=== PATIENT | male | born 1985 ===

== ENCOUNTER 2016-11-22 21:21 | Inpatient (IN) ==
--- NOTE | 2016-11-22 22:09 | Emergency Department Note ---
Disposition Clinical Impression: Acute thrombus of left ventricle, History of CHF (congestive heart failure) Disposition: Home, Self-Care Condition: Good Referrals: Unassigned,Provider [Primary Care Provider] - Forms: Work/School Release, ED Satisfaction Letter Time of Disposition: 22:46 General Adult HPI - General Chief complaint: ED General Medical Stated complaint: Blood Clot~Dr. Batres Time Seen by Provider: 11/22/16 21:47 Source: patient Mode of arrival: ambulatory Limitations: no limitations Nursing Notes Reviewed: Yes Vital Signs Reviewed: Yes - History of Present Illness HPI Narrative: Patient is a 31-year-old male with past medical history CHF, cardiomyopathy, hypertension. He presents today due to referral from Dr. Batres to come to the ED for admission for anticoagulation for an LV thrombus that was found on routine echo. Patient denies any chest pain, any shortness of breath is worsened from his baseline, any nausea, vomiting, fevers, diarrhea, abdominal pain. Patient was told on the phone by Dr. Batres that he could do Coumadin or Lovenox injections. Patient stated that he did not want to have to do injections, therefore he opted for heparin and Coumadin therapy. He takes Lasix 40 mg daily for CHF Pain Scale: 0 - Related Data Home Medications Medication Instructions Recorded Confirmed Trazodone HCl [TraZODone] 100 mg PO HS 09/04/15 11/22/16 OxyCODONE/APAP 5/325 [Percocet 1 each PO Q6H PRN 12/06/15 11/22/16 5/325 MG] Diclofenac Sodium [Diclofenac 1 appl TP QID PRN 11/22/16 11/22/16 Sodium] Duloxetine HCl [Cymbalta] 60 mg PO DAILY 11/22/16 11/22/16 Metoprolol XL (24 HR) Succ [Toprol 75 mg PO DAILY 11/22/16 11/22/16 Xl] Pregabalin [Lyrica] 50 mg PO TID 11/22/16 11/22/16 Previous Rx's Medication Instructions Recorded Aspirin 81 mg PO DAILY #30 tab.chew 12/08/15 Furosemide [Lasix] 40 mg PO DAILY #30 tablet 12/08/15 Lisinopril [Zestril] 40 mg PO DAILY #60 tablet 12/08/15 Potassium Chloride 10 meq PO DAILY #30 tab.er.prt 12/08/15 Allergies Allergy/AdvReac Type Severity Reaction Status Date / Time No Known Allergies Allergy Verified 12/06/15 12:27 Constitutional: Denies: fever Cardiovascular: Denies: chest pain, palpitations, dyspnea on exertion Respiratory: Reports: dyspnea (baseline). Denies: cough, wheezes Gastrointestinal: Denies: abdominal pain, nausea, vomiting, diarrhea Genitourinary: Denies: urgency, dysuria, frequency Musculoskeletal: Denies: back pain Integumentary: Denies: rash Neurological: Denies: headache, weakness, numbness, paresthesias Past Medical History - Past Medical History Attestation: Yes The following information was validated with the patient. Source: patient Medical history: Reports: cardiomyopathy, CHF, hypertension, other Surgical history: Reports: no surgical history Psychiatric history: Reports: anxiety - Social History Smoking Status: Current every day smoker Smokeless Tobacco Status: No Alcohol use: Reports: heavy, recent Drug use: Reports: none Physical Exam - General Limitations: no limitations General appearance: alert, in no apparent distress - Head Head exam: atraumatic, normocephalic, normal inspection - Eye Eye exam: Present: normal appearance, PERRL, EOMI - ENT ENT exam: normal exam, mucous membranes moist - Neck Neck exam: Present: normal inspection, full ROM, trachea midline - Chest Chest inspection: Present: normal inspection, symmetric chest wall rise - Respiratory Respiratory exam: Present: normal lung sounds bilaterally - Cardiovascular Cardiovascular exam: Present: regular rate, normal rhythm, normal heart sounds - Abdominal Exam Abdominal exam: Present: soft, Non-Tender. Absent: tenderness, distention, guarding, rebound, rigidity - Extremities Exam Extremities exam: Present: normal inspection, full ROM. Absent: tenderness, pedal edema - Neurological Exam Neurological exam: Present: alert, oriented X3 - Psychiatric Psychiatric exam: Present: normal affect, normal mood - Skin Skin exam: Present: warm, dry, intact, normal color Course Course Narrative: Vitals within normal limits. Physical exam benign. Discussed the diagnosis with the patient, he would like to be started on heparin and Coumadin therapy instead of Lovenox injections. Dr. Lama was contacted, head of store operations for [employer], he will be consult to the case and will see patient in the morning. Heparin started here in the department. Vital Signs Temperature 98.3 F 11/22/16 21:42 Pulse Rate 93 11/22/16 21:42 Respiratory Rate 16 11/22/16 21:42 Blood Pressure 129/84 11/22/16 21:42 O2 Sat by Pulse Oximetry 99 11/22/16 21:42 Temperature 98.3 F 11/22/16 21:42 Pulse Rate 93 11/22/16 21:42 Respiratory Rate 16 11/22/16 21:42 Blood Pressure 129/84 11/22/16 21:42 O2 Sat by Pulse Oximetry 99 11/22/16 21:42 Oxygen Delivery Oxygen Delivery Room Air Medical Decision Making - MDM Narrative Medical decision making narrative: Vitals within normal limits. Physical exam benign. Discussed the diagnosis with the patient, he would like to be started on heparin and Coumadin therapy instead of Lovenox injections. Dr. Lama was contacted, head of store operations for [employer], he will be consult to the case and will see patient in the morning. Heparin started here in the department. - Medical Records Medical records reviewed: Yes I reviewed the patient's medical records. - Lab Data Lab results reviewed: Yes I reviewed the patient's lab results. Result diagrams: 11/22/16 22:13 11/22/16 22:13 Lab Results 11/22/16 11/22/16 11/22/16 Range/Units 22:13 22:13 22:13 WBC 9.8 (4.3-11.1) K/mcL RBC 4.87 (4.19-5.50) M/mcL Hgb 15.5 (12.9-16.9) g/dL Hct 43.5 (37.5-50.1) % MCV 89.3 (83.0-100.0) fL MCH 31.8 (28.0-33.3) pg MCHC 35.6 H (31.6-35.5) g/dL RDW 12.0 (11.5-14.5) % Plt Count 240 (140-400) K/mcL MPV 9.4 (9.4-12.4) fL Immature Gran % 0.2 (0-4) % Seg Neutrophils % 57.2 % Lymphocytes % 31.8 % Monocytes % 9.3 % Eosinophils % 1.1 % Basophils % 0.4 % Neutrophils # 5.6 (1.6-8.9) K/mcL Lymphocytes # 3.1 (0.6-4.6) K/mcL Monocytes # 0.9 (0.0-1.3) K/mcL Eosinophils # 0.1 (0.0-0.6) K/mcL Basophils # 0.0 (0.0-0.2) K/mcL PT 11.0 (9.4-12.1) Seconds INR 1.0 APTT 31.1 (26.0-36.0) Seconds Sodium 137 (136-145) mEq/L Potassium 3.7 (3.5-4.5) mEq/L Chloride 102 (98-109) mEq/L Carbon Dioxide 23 (19-29) mEq/L BUN 10 (8-26) mg/dL Creatinine 0.91 (0.72-1.25) mg/dL Est GFR ( Amer) > 60 (> 60) Est GFR (Non-Af Amer) > 60 (> 60) BUN/Creatinine Ratio 11 (6-26) Glucose 107 H (70-99) mg/dL Calculated Osmolality 284 (280-300) Calcium 10.3 (8.6-10.8) mg/dL - EKG Data EKG #1 EKG attestation: Yes I reviewed and interpreted this EKG. EKG results narrative: 11/22/2016 at 22:23. Normal sinus rhythm. Rate 87. FL 159. QRS 102. QTc 410. Left axis. Q wave in lead V1 with inverted T-wave. This is present on old EKG from 12/2015. No other acute ST elevation or depression. Cassie - Cassie Situation: Demographics, MOA Background: Presenting Complaint, Relevant PMH, Meds, & Allergies Assessment: Vital Signs, Course and respsone to treatment, Exam Concerns, Patient/Family Expectation, Pertinant Lab Results, Outstanding Labs Recommendation: Barrier(s) to disposition, Recommendation based on pending studies, treatments, or consults SRohan Report Given to: Dr. Daksha Matthews Repor Time: 22:46 Attestation Statement - Attestation Attestation: I examined this patient and my medical decision-making was reviewed with the ASS[employer]ULT [employer] CREWMAN/PA/Advanced Practice Nurse/Resident Physician. I agree with the documented findings, disposition and treatment plan as described except to the extent set forth below. Patient to ED with thrombus in his left ventricle. Diagnoses an outpatient and sent for heparin and admission. Patient denies any physical complaints. On examination he is sitting up in bed pleasant and conversant. Lungs clear. Plan. Heparin and admit. 30 minutes critical care exclusive of separately billable procedures.
[2016-11-22 22:26] LABS: Basophils % 0.4 %; Eosinophils # 0.1 K/mcL (0.0-0.6); Eosinophils % 1.1 %; Hematocrit 43.5 % (37.5-50.1); Hemoglobin 15.5 g/dL (12.9-16.9); Immature Granulocytes % 0.2 % (0-4); Lymphocytes # 3.1 K/mcL (0.6-4.6); Lymphocytes % 31.8 %; Mean Corpuscular HGB Conc 35.6 g/dL (31.6-35.5); Mean Corpuscular Hemoglobin 31.8 pg (28.0-33.3); Mean Corpuscular Volume 89.3 fL (83.0-100.0); Mean Platelet Volume 9.4 fL (9.4-12.4); Monocytes # 0.9 K/mcL (0.0-1.3); Monocytes % 9.3 %; Neutrophils # 5.6 K/mcL (1.6-8.9); Platelet Count 240 K/mcL (140-400); Red Blood Count 4.87 M/mcL (4.19-5.50); Segmented Neutrophils % 57.2 %
[2016-11-22 22:39] LABS: BUN/Creatinine Ratio 11 (6-26); Blood Urea Nitrogen 10 mg/dL (8-26); Calcium 10.3 mg/dL (8.6-10.8); Carbon Dioxide 23 mEq/L (19-29); Chloride 102 mEq/L (98-109); Glucose 107 mg/dL (70-99); Osmolality,Calculated 284 (280-300); Potassium 3.7 mEq/L (3.5-4.5); Sodium 137 mEq/L (136-145); eGFR For African Americans > 60 (> 60); eGFR For Non-African Americans > 60 (> 60)
[2016-11-22 22:41] LABS: Activated Partial Thrombo Time 31.1 Seconds (26.0-36.0)
[2016-11-22] MEDS ORDERED: *HR* Heparin 5,000 UNIT/ML VIAL IVP PRN ×2 (22:43)
[2016-11-22] MEDS ORDERED: *HR* Heparin 5,000 UNIT/ML VIAL IVP ONE (22:43)
[2016-11-22] MEDS ORDERED: *HR* LORazepam 2 MG/ML VIAL IV ONE (23:12)
[2016-11-22] MEDS ORDERED: Nicotine 21 MG PATCH.TD24 TD STA (23:13)
[2016-11-22] MEDS: Heparin 25,000 UNIT/500 ML D5W 25,000 UNIT/500 ML MLS IVC SCH (23:45)
[2016-11-23] MEDS ORDERED: *HR* Warfarin 10 MG TABLET PO ONE (01:04)
[2016-11-23] MEDS ORDERED: *HR* LORazepam 0.5 MG TABLET PO ONE (01:05)
[2016-11-23] MEDS ORDERED: Acetaminophen 325 MG TABLET PO PRN (01:06)
[2016-11-23] MEDS ORDERED: Naloxone 0.4 MG/ML INJ IVP PRN (01:06)
--- NOTE | 2016-11-23 01:10 | Internal Med History&Physical ---
Date of Encounter: 11/23/16 Time of Encounter: 01:10 Assessment and Plan (1) Acute thrombus of left ventricle Current visit: Yes Status: Acute Patient is started on heparin infusion and warfarin.Warfarin dosing per pharmacy , for a target of 2-3. Will consult mercury cracking tester. (2) History of CHF (congestive heart failure) Current visit: Yes Status: Chronic Known history of systolic CHF. Recent echocardiogram showed LVEF of 25%. Continue his home medications. Low-sodium diet and fluid restriction to 1.5-2 L per day (3) Cardiomyopathy Current visit: Yes Status: Chronic Non ischemic cardiomyopathy. continue his home medications Qualifiers: Cardiomyopathy type: unspecified Qualified Code(s): I42.9 - Cardiomyopathy , unspecified (4) Essential hypertension Current visit: Yes Status: Chronic Blood pressure is controlled. Continue home medications. Internal Medicine - H&P: HPI Chief complaint: LV thrombus Admitted From: Emergency Dept Plans for Post Hospital Care: Home History of present illness: Mr. Cabrera is a 31 year old male with past medical history systolic CHF (LVEF of 35%), non-ischemic cardiomyopathy, hypertension, h/o ETOH and tobacco abuse. Pt was in Dr. Harper office for echocardiogram, which reported LVEF of 35% and echodensity in the left ventricular apex suspicious for laminated LV thrombus. Patient was advised to come to the emergency department for anticoagulation. Rug Cleaner advised / pt preference, heparin infusion and warfarin. Patient denies any chest pain, any worsening of shortness of breath, palpitations, cough, expectoration, fever, chills, abdominal pain, nausea, vomiting, fevers, diarrhea, dysuria. Patient with started on heparin infusion in the emergency department. He is admitted to the hospitalist service for further management. Past Med Surg Social Fam HX - Past Medical History Medical history: cardiomyopathy, CHF, hypertension, other Psychiatric history: anxiety - Past Surgical History Surgical History: no surgical history - Social History Smoking Status: Current every day smoker Smokeless Tobacco Status: No Alcohol use: heavy, recent Drug use: none - Family History Mother Adopted: No Family Member Ethnicity: Non- Living Status: Still Living Hx Family Cardiac Disorders: No Hx Family Respiratory Disorders: No Hx Family Cancer: No Hx Family GI Disorders: No Hx Family Endocrine Disorder: No Hx Family Neuromuscular Disorders: No Hx Family Neurologic Disorders: No Hx Family HEENT Disorders: No Hx Family Autoimmune Disorders: No Internal Medicine - H&P: Meds Trazodone HCl [TraZODone] 100 mg PO HS 09/04/15 [History] OxyCODONE/APAP 5/325 [Percocet 5/325 MG] 1 each PO Q6H PRN 12/06/15 [History] Aspirin 81 mg PO DAILY #30 tab.chew 12/08/15 [Rx] Furosemide [Lasix] 40 mg PO DAILY #30 tablet 12/08/15 [Rx] Lisinopril [Zestril] 40 mg PO DAILY #60 tablet 12/08/15 [Rx] Potassium Chloride 10 meq PO DAILY #30 tab.er.prt 12/08/15 [Rx] Diclofenac Sodium [Diclofenac Sodium] 1 appl TP QID PRN 11/22/16 [History] Duloxetine HCl [Cymbalta] 60 mg PO DAILY 11/22/16 [History] Metoprolol XL (24 HR) Succ [Toprol Xl] 75 mg PO DAILY 11/22/16 [History] Pregabalin [Lyrica] 50 mg PO TID 11/22/16 [History] Allergies No Known Allergies Allergy (Verified 12/06/15 12:27) All Systems PM: A 10-system review of systems was performed and is negative for pertinent findings except as documented above in the HPI. - Constitutional Vitals: Temp Pulse Resp BP Pulse Ox 98.3 F 93 18 116/90 99 11/22/16 21:42 11/22/16 21:42 11/23/16 00:11 11/23/16 00:11 11/22/16 21:42 Exam: General: Not in acute distress at the time of my evaluation HEENT: Oral mucosa is moist. No conjunctival palor or scleral icterus Neck: No obvious neck swellings Lungs: Clear to auscultation Cardiac: Regular rate and rhythm. No significant murmurs Abdomen: Soft, non tender. Bowel sounds present Genitourinary: No figueroa catheter Neurological: Alert and oriented. No gross localizing deficits Psych: Not aggressive or agitated Extremities: no significant leg edema Skin: No generalized rash Internal Med - H&P Results - Labs CBC & Chem 7: 11/22/16 22:13 11/22/16 22:13 - EKG Data -: EKG Interpreted by Myself EKG shows normal: sinus rhythm - EKG Data EKG comments: Q waves in V2 V3 11/23/16 04:34 - VTE Reasons for not Prescribing Prophylaxis: Not indicated-Anticoagulated or INR therapeutic
[2016-11-23] MEDS: *HR* OxyCODONE/APAP 5/325 TABLET PO PRN ×3 (05:40→21:00)
[2016-11-23 06:28] LABS: INR 1.1; Prothrombin Time 11.4 Seconds (9.4-12.1)
[2016-11-23] MEDS: Pregabalin 50 MG CAPSULE PO SCH ×3 (08:45→22:57)
[2016-11-23] MEDS: Furosemide 40 MG TABLET PO SCH (08:46)
[2016-11-23] MEDS: Metoprolol XL (24 HR) Succ 50 MG TAB.ER.24H PO SCH (08:46)
[2016-11-23] MEDS: Aspirin 81 MG TAB.CHEW PO SCH (08:46)
[2016-11-23] MEDS ORDERED: Lisinopril 20 MG TABLET PO SCH (09:00)
[2016-11-23] MEDS: *HR* LORazepam 0.5 MG TABLET PO PRN ×2 (09:48→20:59)
[2016-11-23] MEDS: Nicotine 21 MG PATCH.TD24 TD SCH (09:49)
--- NOTE | 2016-11-23 09:51 | Cardiology Consult Note ---
<Tyron Cardoso - Last Filed: 11/23/16 09:42> Date of Encounter: 11/23/16 Time of Encounter: 09:42 Assessment and Plan (1) LV (left ventricular) mural thrombus Current Visit: Yes Status: Acute On heparin bridge to coumadin therapy. Goal INR 2.0-3.0. Pt voiced understanding. Will refer to coumadin clinic. Pharmacy dosing currently. Pt is anxious about staying and says he may have to leave prior to therapuetic INR. Will considr lovenox therapy. I will order nicotine patch. Discussed with primary team. CIWA protocal started. ETOH cessation discussed. (2) Cardiomyopathy Current Visit: Yes Status: Chronic Known non ischemic cardiomyopathy. TTE yesterday showed EF 35%. Currently euvolemic. ETOH cessation discussed. Continue metoprolol succinate, lisinopril, and Lasix. Low-sodium diet and daily weights. Strict I&O. Need for ICD placement can be discussed further an outpatient setting. Qualifiers: Cardiomyopathy type: unspecified Qualified Code(s): I42.9 - Cardiomyopathy , unspecified Discussion w patient/family: The assessment and plan as outlined above was discussed with the patient and/or family members who expressed understanding and agreement. All questions were answered. Thank you for involving us in the care of your patient. Please call with any questions. History of Present Illness Consult date: 11/23/16 Requesting physician: Ignacio Canela Consult reason: LV thrombus Chief complaint: Blood clot in heart History of present illness: Mr. Cabrera is a 31 year old male with history of nonischemic cardiomyopathy, probable alcohol induced, EF initially 15-25% that improved to 35%. He underwent repeat echocardiogram yesterday that revealed an echodensity at the LV apex that is suspicious for laminate LV thrombus. EF 35%. He was instructed to go to the ER to be started on anticoagulation. He was started on heparin gtt and coumadin. He denies chest pain or SOB. Denies BLE edema or weight gain. Denies orthopnea or PND. C/o feeling anxious. He continues to smoke and drink alcohol. He has decrease the amount he drinks. Previous studies: Left heart catheterization 12/06/2015: Normal coronary arteries. EF 15%. Echocardiogram 12/06/2015: EF 15-20%. Moderately dilated left ventricle. Normal RV size with mild to moderate hypokinesis. Moderate left atrial enlargement. No significant valvular dysfunction. Past Med Surg Social Fam HX - Past Medical History Medical history: cardiomyopathy, CHF, hypertension, other Psychiatric history: anxiety - Past Surgical History Surgical History: no surgical history - Social History Smoking Status: Current every day smoker Packs per day: 3/4 Smokeless Tobacco Status: No Alcohol use: heavy, recent Drug use: none - Family History Mother Adopted: No Family Member Ethnicity: Non- Living Status: Still Living Hx Family Cardiac Disorders: No Hx Family Respiratory Disorders: No Hx Family Cancer: No Hx Family GI Disorders: No Hx Family Endocrine Disorder: No Hx Family Neuromuscular Disorders: No Hx Family Neurologic Disorders: No Hx Family HEENT Disorders: No Hx Family Autoimmune Disorders: No Medications and Allergies Trazodone HCl [TraZODone] 100 mg PO HS 09/04/15 [History] OxyCODONE/APAP 5/325 [Percocet 5/325 MG] 1 each PO Q6H PRN 12/06/15 [History] Aspirin 81 mg PO DAILY #30 tab.chew 12/08/15 [Rx] Furosemide [Lasix] 40 mg PO DAILY #30 tablet 12/08/15 [Rx] Potassium Chloride 10 meq PO DAILY #30 tab.er.prt 12/08/15 [Rx] Diclofenac Sodium [Diclofenac Sodium] 1 appl TP QID PRN 11/22/16 [History] Duloxetine HCl [Cymbalta] 60 mg PO DAILY 11/22/16 [History] Metoprolol XL (24 HR) Succ [Toprol Xl] 75 mg PO DAILY 11/22/16 [History] Pregabalin [Lyrica] 50 mg PO TID 11/22/16 [History] Lisinopril [Zestril] 20 mg PO BID 11/23/16 [History] Allergies No Known Allergies Allergy (Verified 12/06/15 12:27) All Systems Review: A 10-system review of systems was performed and is negative for pertinent findings except as documented above in the HPI. Physical Examination Vital Signs, Last 4 Hours Temp Pulse Resp BP Pulse Ox 11/23/16 06:43 98.2 F 92 19 112/78 97 General: Conversant, No Apparent Distress HEENT: Atraumatic, Normocephaly, Mucus Membranes Moist Neck: No JVD, Normal carotid pulses Cardiac: Reg Rate and Rhythm, Normal S1 and S2, No Murmur Lungs: Normal Breath Sounds, No Wheeze, Rales, Rhonchi Neuro: Alert and responsive, No focal deficits noted Abdomen: Soft, Non-Tender Skin: No rashes noted on visualized skin Musculoskeletal: No Chest Wall Tenderness Extremities: No Clubbing, No Cyanosis, No Edema, Normal Pulses Results 11/22/16 22:13 11/22/16 22:13 Lab Results 11/23/16 11/23/16 11/23/16 05:49 05:49 05:49 INR 1.1 APTT Magnesium 1.7 Troponin I B-Natriuretic Peptide 109 H 11/23/16 11/23/16 05:49 05:49 INR APTT 71.0 H D Magnesium Troponin I 0.00 B-Natriuretic Peptide - Imaging and Cardiology Echo: report reviewed - EKG Interpretation EKG results cardiology: personally reviewed Consult Discharge Plan - Plan Referrals: Cortney Bullard MD [Primary Care Provider] - <Kin Lama - Last Filed: 11/23/16 10:50> Date of Encounter: 11/23/16 Assessment and Plan Discussion w patient/family: The assessment and plan as outlined above was discussed with the patient and/or family members who expressed understanding and agreement. All questions were answered. Thank you for involving us in the care of your patient. Please call with any questions. History of Present Illness History of present illness: Mr. Cabrera is a 31 year old male All Systems Review: A 10-system review of systems was performed and is negative for pertinent findings except as documented above in the HPI. Results 11/22/16 22:13 11/22/16 22:13 Lab Results 11/23/16 11/23/16 11/23/16 05:49 05:49 05:49 INR 1.1 APTT Magnesium 1.7 Troponin I B-Natriuretic Peptide 109 H 11/23/16 11/23/16 05:49 05:49 INR APTT 71.0 H D Magnesium Troponin I 0.00 B-Natriuretic Peptide Attestation: My signature below is to certify that this patient is under my care and that I, or nurse practitioner, or a physician's assistant site manager working with me, has a face-to -face encounter with this patient. LV thrombus associated with known LV systolic dysfunction. A/c - Heparin to Coumadin. Await INR to be therapeutic. INR in AM. He is not eager to stay in the hospital now - will reassess in AM
[2016-11-23] MEDS ORDERED: *HR* LORazepam 2 MG/ML VIAL IVP PRN ×3 (10:03)
[2016-11-23] MEDS: Thiamine (B-1) 100 MG TABLET PO SCH (10:43)
[2016-11-23] MEDS: Folic Acid 1 MG TABLET PO SCH (10:43)
[2016-11-23] MEDS ORDERED: *HR* LORazepam 2 MG/ML VIAL IVP ONE (13:45)
[2016-11-23] MEDS ORDERED: Warfarin perPT PO PRN (18:00)
--- NOTE | 2016-11-23 18:05 | Event Note ---
Date of Encounter: 11/23/16 Time of Encounter: 17:30 Mr Cabrera was admitted earlier today due to presumed cardiac thrombus. He is on heparin/coumadin. He has insisted on smoking multiple times today. He has been told he cannot smoke in room or go outside. He threatens AMA multiple times. Exam Comfortable at this time Plan Continue heparin/coumadin NAN
[2016-11-23] MEDS: Heparin 25,000 UNIT/500 ML D5W 25,000 UNIT/500 ML MLS IVC SCH (21:15)
[2016-11-23] MEDS: traZODone 50 MG TABLET PO SCH (22:57)
[2016-11-23] MEDS: Lisinopril 20 MG TABLET PO SCH (22:57)
[2016-11-24 07:19] LABS: INR 1.2; Prothrombin Time 12.6 Seconds (9.4-12.1)
--- NOTE | 2016-11-24 10:10 | Cardiology Progress Note ---
Date of Encounter: 11/24/16 Time of Encounter: 10:08 Assessment and Plan (1) Congestive heart failure Current Visit: No Status: Acute Continue CHF meds. Qualifiers: Congestive heart failure type: systolic Congestive heart failure chronicity : acute Qualified Code(s): I50.21 - Acute systolic (congestive) heart failure (2) Acute thrombus of left ventricle Current Visit: Yes Status: Acute Patient is started on heparin infusion and warfarin. Warfarin dosing per pharmacy, for a target of 2-3. Home when INR 2-3. Hopefully tomorrow. Discussion w patient/family: The assessment and plan as outlined above was discussed with the patient and/or family members who expressed understanding and agreement. All questions were answered. Thank you for involving us in the care of your patient. Please call with any questions. Subjective Principal diagnosis: chf Interval history: Patient threatened to leave AMA at least once last night. No specific complaints this morning - other than he is eager to go home Objective Vital Signs, Last 4 Hours Temp Pulse Resp BP Pulse Ox 11/24/16 10:06 112/72 11/24/16 08:00 97 11/24/16 07:00 97.8 F 97 15 91/53 97 General: Conversant, No Apparent Distress HEENT: Atraumatic, Mucus Membranes Moist Neck: No JVD, Normal carotid pulses Cardiac: Reg Rate and Rhythm, No Murmur Lungs: Normal Breath Sounds, No Wheeze, Rales, Rhonchi Neuro: Alert and responsive, No focal deficits noted Abdomen: Soft, Non-Tender Skin: No rashes noted on visualized skin Musculoskeletal: No Chest Wall Tenderness Extremities: No Clubbing, No Cyanosis Results 11/22/16 22:13 11/22/16 22:13 Lab Results 11/23/16 11/24/16 12:23 06:28 INR 1.2 APTT 66.6 H - Imaging and Cardiology Echo: report reviewed, image reviewed - VTE Reasons for not Prescribing Prophylaxis: Not indicated-Anticoagulated or INR therapeutic Consult Discharge Plan - Plan Referrals: Cortney Bullard MD [Primary Care Provider] -
[2016-11-24] MEDS: Pregabalin 50 MG CAPSULE PO SCH ×3 (10:20→21:12)
[2016-11-24] MEDS: *HR* LORazepam 0.5 MG TABLET PO PRN (10:20)
[2016-11-24] MEDS: Metoprolol XL (24 HR) Succ 50 MG TAB.ER.24H PO SCH (10:20)
[2016-11-24] MEDS: *HR* OxyCODONE/APAP 5/325 TABLET PO PRN ×4 (10:20→22:23)
[2016-11-24] MEDS: Thiamine (B-1) 100 MG TABLET PO SCH (10:21)
[2016-11-24] MEDS: Furosemide 40 MG TABLET PO SCH (10:21)
[2016-11-24] MEDS: Folic Acid 1 MG TABLET PO SCH (10:21)
[2016-11-24] MEDS: Nicotine 21 MG PATCH.TD24 TD SCH (10:21)
[2016-11-24] MEDS: Lisinopril 20 MG TABLET PO SCH ×2 (10:21→21:13)
[2016-11-24] MEDS: Aspirin 81 MG TAB.CHEW PO SCH (10:21)
[2016-11-24] MEDS: *HR* LORazepam 2 MG/ML VIAL IVP PRN ×2 (13:20→21:13)
--- NOTE | 2016-11-24 14:33 | Internal Med Progress Note ---
Date of Encounter: 11/24/16 Time of Encounter: 11:15 - Assessment and plan (1) Mural thrombus of left ventricle without WV Current Visit: Yes Status: Acute Assessment and plan: On IV heparin and coumadin. No acute issues today. (2) Nonischemic cardiomyopathy Current Visit: No Status: Acute Assessment and plan: Supportive care and medical management. (3) Essential hypertension Current Visit: Yes Status: Chronic Assessment and plan: Continue meds. (4) Congestive heart failure Current Visit: No Status: Acute Assessment and plan: Continue home meds and supportive care. Qualifiers: Congestive heart failure type: systolic Congestive heart failure chronicity : chronic Qualified Code(s): I50.22 - Chronic systolic (congestive) heart failure (5) ETOH abuse Current Visit: No Status: Chronic Assessment and plan: No withdrawal at this time. (6) Tobacco abuse Current Visit: No Status: Chronic Assessment and plan: cessation counseling. - Subjective Interval history: Mr. Cabrera is currently admitted for presumed LV thrombus. He is moderate to high risk due to potential for worsening cardiac issues. Mr. Cabrera slept OK. He would like to shower and have his pain med timing adjusted. He can walk around on the unit but cannot leave unit. No chest pain or dyspnea. No GI symptoms. - Constitutional Vitals: Temp Pulse Resp BP Pulse Ox 97.8 F 97 15 112/72 97 11/24/16 07:00 11/24/16 07:00 11/24/16 07:00 11/24/16 10:06 11/24/16 08:00 General appearance: Present: A&O X 3, answers questions appropriately - Head Head exam: Present: normocephalic - Eye Eye exam: Present: conjuntiva pink - ENT ENT exam: Present: mucous membranes dry - Respiratory Respiratory exam: Present: CTAB. Absent: rhonchi, wheezes - Cardiovascular Cardiovascular exam: Present: RRR. Absent: tachycardia - GI/Abdominal GI/Abdominal exam: Present: soft. Absent: tenderness - Extremities Exam Extremities exam: Present: warm. Absent: pedal edema, tenderness - Neurological Exam Neurological exam: Present: alert, oriented X3, no focal deficits - Skin Skin exam: Present: warm. Absent: rash Internal Medicine: Result - Labs CBC & Chem 7: 11/22/16 22:13 11/22/16 22:13 - ABG Interpretation ABG results: PT/INR, D-dimer PT 12.6 Seconds (9.4-12.1) H 11/24/16 06:28 - VTE Reasons for not Prescribing Prophylaxis: Not indicated-Anticoagulated or INR therapeutic Consult Discharge Plan - Plan Referrals: Cortney Bullard MD [Primary Care Provider] -
[2016-11-24] MEDS: Heparin 25,000 UNIT/500 ML D5W 25,000 UNIT/500 ML MLS IVC SCH (16:00)
[2016-11-24] MEDS ORDERED: *HR* Warfarin 5 MG TABLET PO ONE (18:00)
--- NOTE | 2016-11-24 20:11 | Electrocardiograph Report ---
[address] [place] [address] Test Date: 2016-11-22 Pat Name: Duyen Cabrera Department: 102 Room: 2NE26 Gender: M Tax Clerk: Dejuan : 1985 Requested By: Joel Langford Order Number: [id number] Reading MD: Slava Fitzgerald MD Measurements Intervals [place] Rate: 87 P: 16 [place]: 159 QRS: -24 QRSD: 102 T: 67 QT: 365 QTc: 410 Interpretive Statements SINUS RHYTHM POSSIBLE ANTERIOR MYOCARDIAL INFARCTION, OF INDETERMINATE AGE Electronically Signed On 11-24-2016 20:10:31 EDT by Slava Fitzgerald MD
[2016-11-24] MEDS: traZODone 50 MG TABLET PO SCH (21:12)
[2016-11-24 22:14] LABS: Activated Partial Thrombo Time 147.5 Seconds (26.0-36.0)
[2016-11-24 22:18] LABS: Heparin anti-factor XA UFH 0.81 IU/mL (0.30-0.70)
[2016-11-25 05:33] LABS: INR 1.1; Prothrombin Time 11.8 Seconds (9.4-12.1)
[2016-11-25 05:35] LABS: Activated Partial Thrombo Time 79.1 Seconds (26.0-36.0)
[2016-11-25 05:39] LABS: Hematocrit 44.4 % (37.5-50.1); Hemoglobin 14.9 g/dL (12.9-16.9); Mean Corpuscular HGB Conc 33.6 g/dL (31.6-35.5); Mean Corpuscular Hemoglobin 31.3 pg (28.0-33.3); Mean Corpuscular Volume 93.3 fL (83.0-100.0); Mean Platelet Volume 9.6 fL (9.4-12.4); Platelet Count 202 K/mcL (140-400); Red Blood Count 4.76 M/mcL (4.19-5.50)
[2016-11-25 05:45] LABS: BUN/Creatinine Ratio 12 (6-26); Blood Urea Nitrogen 10 mg/dL (8-26); Calcium 9.2 mg/dL (8.6-10.8); Carbon Dioxide 21 mEq/L (19-29); Chloride 107 mEq/L (98-109); Glucose 102 mg/dL (70-99); Osmolality,Calculated 285 (280-300); Potassium 4.1 mEq/L (3.5-4.5); Sodium 138 mEq/L (136-145); eGFR For African Americans > 60 (> 60); eGFR For Non-African Americans > 60 (> 60)
[2016-11-25] MEDS: Aspirin 81 MG TAB.CHEW PO SCH (08:11)
[2016-11-25] MEDS: Pregabalin 50 MG CAPSULE PO SCH ×3 (08:11→20:37)
[2016-11-25] MEDS: Thiamine (B-1) 100 MG TABLET PO SCH (08:11)
[2016-11-25] MEDS: Folic Acid 1 MG TABLET PO SCH (08:13)
[2016-11-25] MEDS: Metoprolol XL (24 HR) Succ 50 MG TAB.ER.24H PO SCH (08:14)
[2016-11-25] MEDS: Nicotine 21 MG PATCH.TD24 TD SCH (08:14)
[2016-11-25] MEDS: *HR* LORazepam 0.5 MG TABLET PO PRN ×2 (08:14→20:42)
[2016-11-25] MEDS: Furosemide 40 MG TABLET PO SCH (08:15)
[2016-11-25] MEDS: Lisinopril 20 MG TABLET PO SCH ×2 (08:15→20:43)
[2016-11-25] MEDS: *HR* OxyCODONE/APAP 5/325 TABLET PO PRN ×4 (08:23→22:33)
[2016-11-25] MEDS: Heparin 25,000 UNIT/500 ML D5W 25,000 UNIT/500 ML MLS IVC SCH (10:34)
--- NOTE | 2016-11-25 13:42 | Discharge Summary ---
Date of Encounter: 11/25/16 Time of Encounter: 13:40 - Discharge Diagnosis (1) Mural thrombus of left ventricle without AL Status: Acute (2) Nonischemic cardiomyopathy Status: Acute (3) Essential hypertension Status: Chronic (4) Congestive heart failure Status: Acute Qualifiers: Congestive heart failure type: systolic Congestive heart failure chronicity : chronic Qualified Code(s): I50.22 - Chronic systolic (congestive) heart failure (5) ETOH abuse Status: Chronic (6) Tobacco abuse Status: Chronic - Discharge Medications Prescriptions: Enoxaparin [Lovenox] 140 mg SQ DAILY #10 syr Home Medications: Trazodone HCl [TraZODone] 100 mg PO HS 09/04/15 [History] OxyCODONE/APAP 5/325 [Percocet 5/325 MG] 1 each PO Q6H PRN 12/06/15 [History] Aspirin 81 mg PO DAILY #30 tab.chew 12/08/15 [Rx] Furosemide [Lasix] 40 mg PO DAILY #30 tablet 12/08/15 [Rx] Potassium Chloride 10 meq PO DAILY #30 tab.er.prt 12/08/15 [Rx] Diclofenac Sodium [Diclofenac Sodium] 1 appl TP QID PRN 11/22/16 [History] Duloxetine HCl [Cymbalta] 60 mg PO DAILY 11/22/16 [History] Metoprolol XL (24 HR) Succ [Toprol Xl] 75 mg PO DAILY 11/22/16 [History] Pregabalin [Lyrica] 50 mg PO TID 11/22/16 [History] Lisinopril [Zestril] 20 mg PO BID 11/23/16 [History] Enoxaparin [Lovenox] 140 mg SQ DAILY #10 syr 11/25/16 [Rx] Allergies/Adverse Reactions: Allergies No Known Allergies Allergy (Verified 12/06/15 12:27) Date of admission: 11/22/16 23:08 Primary care physician: Cortney Bullard Consults: 11/23/16 04:39 Consult to Cardiology [CONS] Routine Comment: Consulting Provider: Cardiology Eliz Reason for Consult: LV thrombus Call Completed: No 11/25/16 11:14 Consult to Customer Service Rep [CONS] Routine Reason for SW Consult: check rivero for lovenox. - Patient Status Condition: Good - Discharge Instructions Follow Up With: Cortney Bullard MD [Primary Care Provider] - Hospital course: Mr. Cabrera is a 31 year old male - Time Spent with Patient Total time spent providing and/or coordinating discharge services: - Constitutional Vitals: Temp Pulse Resp BP Pulse Ox 98.4 F 94 18 92/62 95 11/25/16 11:20 11/25/16 11:20 11/25/16 11:20 11/25/16 11:20 11/25/16 11:20 General appearance: Present: A&O X 3, answers questions appropriately - VTE Reasons for not Prescribing Prophylaxis: Not indicated-Anticoagulated or INR therapeutic
[2016-11-25] MEDS: *HR* LORazepam 2 MG/ML VIAL IVP PRN (13:56)
[2016-11-25] MEDS ORDERED: *HR* Warfarin 7.5 MG TABLET PO ONE (18:00)
--- NOTE | 2016-11-25 19:17 | Internal Med Progress Note ---
Date of Encounter: 11/25/16 Time of Encounter: 18:00 - Assessment and plan (1) Mural thrombus of left ventricle without NM Current Visit: Yes Status: Acute Assessment and plan: On IV heparin and coumadin. Is willing to stay in hospital to get therapeutic on coumadin. (2) Nonischemic cardiomyopathy Current Visit: No Status: Acute Assessment and plan: Supportive care and medical management. (3) Essential hypertension Current Visit: Yes Status: Chronic Assessment and plan: Continue meds. (4) Congestive heart failure Current Visit: No Status: Acute Assessment and plan: Continue home meds and supportive care. Qualifiers: Congestive heart failure type: systolic Congestive heart failure chronicity : chronic Qualified Code(s): I50.22 - Chronic systolic (congestive) heart failure (5) ETOH abuse Current Visit: No Status: Chronic Assessment and plan: Currently on CIWA. Added routine Librium as well today. (6) Tobacco abuse Current Visit: No Status: Chronic Assessment and plan: cessation counseling. - Subjective Interval history: Mr. Cabrera is currently admitted for presumed LV thrombus. He is moderate to high risk due to potential for worsening cardiac issues. Mr. Cabrera was going to leave on Lovenox but has decided to stay. He is having some alcohol withdrawal symptoms. No fever or chills. No bleeding. Understands diet with coumadin. - Constitutional Vitals: Temp Pulse Resp BP Pulse Ox 97.9 F 96 20 112/86 95 11/25/16 19:05 11/25/16 19:05 11/25/16 19:05 11/25/16 19:05 11/25/16 14:53 General appearance: Present: A&O X 3, answers questions appropriately - Head Head exam: Present: normocephalic - Eye Eye exam: Present: conjuntiva pink - ENT ENT exam: Present: mucous membranes moist - Respiratory Respiratory exam: Present: CTAB. Absent: rhonchi, wheezes - Cardiovascular Cardiovascular exam: Present: RRR. Absent: tachycardia - GI/Abdominal GI/Abdominal exam: Present: soft. Absent: tenderness - Extremities Exam Extremities exam: Present: warm. Absent: pedal edema - Neurological Exam Neurological exam: Present: alert, oriented X3, no focal deficits - Psychiatric Psychiatric exam: Present: anxious - Skin Skin exam: Present: warm. Absent: rash Internal Medicine: Result - Labs CBC & Chem 7: 04/24/17 05:10 11/25/16 05:10 Labs: Short CBC 11/25/16 Range/Units 05:10 WBC 6.6 (4.3-11.1) K/mcL Hgb 14.9 (12.9-16.9) g/dL Hct 44.4 (37.5-50.1) % Plt Count 202 (140-400) K/mcL BMP 11/25/16 05:10 Sodium 138 Potassium 4.1 Chloride 107 Carbon Dioxide 21 BUN 10 Creatinine 0.83 Glucose 102 H Calcium 9.2 - ABG Interpretation ABG results: PT/INR, D-dimer PT 11.8 Seconds (9.4-12.1) 11/25/16 05:10 - VTE Reasons for not Prescribing Prophylaxis: Not indicated-Anticoagulated or INR therapeutic Consult Discharge Plan - Plan Referrals: Cortney Bullard MD [Primary Care Provider] - Prescriptions: Enoxaparin [Lovenox] 140 mg SQ DAILY #10 syr
[2016-11-25] MEDS: traZODone 50 MG TABLET PO SCH (22:33)
[2016-11-26 05:21] LABS: INR 1.4; Prothrombin Time 14.7 Seconds (9.4-12.1)
[2016-11-26] MEDS: Nicotine 21 MG PATCH.TD24 TD SCH (08:39)
[2016-11-26] MEDS: Folic Acid 1 MG TABLET PO SCH (08:40)
[2016-11-26] MEDS: Aspirin 81 MG TAB.CHEW PO SCH (08:40)
[2016-11-26] MEDS: Thiamine (B-1) 100 MG TABLET PO SCH (08:40)
[2016-11-26] MEDS: Pregabalin 50 MG CAPSULE PO SCH ×3 (08:40→20:55)
[2016-11-26] MEDS: *HR* OxyCODONE/APAP 5/325 TABLET PO PRN ×4 (08:46→23:14)
[2016-11-26] MEDS: *HR* LORazepam 0.5 MG TABLET PO PRN ×3 (08:46→22:32)
[2016-11-26] MEDS: Metoprolol XL (24 HR) Succ 50 MG TAB.ER.24H PO SCH (09:04)
[2016-11-26] MEDS: Lisinopril 20 MG TABLET PO SCH ×2 (09:04→20:52)
[2016-11-26] MEDS: Furosemide 40 MG TABLET PO SCH (09:04)
--- NOTE | 2016-11-26 10:32 | Internal Med Progress Note ---
Date of Encounter: 11/26/16 Time of Encounter: 10:30 - Assessment and plan (1) Mural thrombus of left ventricle without VT Current Visit: Yes Status: Acute Assessment and plan: On IV heparin and coumadin. Is willing to stay in hospital to get therapeutic on coumadin. 11/26/2016. Patient's INR is 1.4. Will continue the same medication. (2) Nonischemic cardiomyopathy Current Visit: No Status: Acute Assessment and plan: Supportive care and medical management. (3) Essential hypertension Current Visit: Yes Status: Chronic Assessment and plan: Continue meds. (4) ETOH abuse Current Visit: No Status: Chronic Assessment and plan: Currently on CIWA. Added routine Librium as well today. (5) DVT prophylaxis Current Visit: No Status: Acute Assessment and plan: Heparin drip Medical decision making: This patient has a [id number] risk of worsening in spite of being on appropriate medication due to the underlying cardiac issues - Subjective Interval history: Patient seen and examined. Chart reviewed. Patient is comfortably lying in the bed. Patient denies chest pain, shortness of breath, nausea, vomiting, diarrhea and abdominal pain. - Constitutional Vitals: Temp Pulse Resp BP Pulse Ox 97.6 F 91 16 94/59 97 11/26/16 07:00 11/26/16 07:00 11/26/16 07:00 11/26/16 07:00 11/26/16 07:00 General appearance: Present: A&O X 3, answers questions appropriately - Head Head exam: Present: atraumatic, normocephalic - Eye Eye exam: Present: PERRL, conjuntiva pink, sclera anicteric Pupils: Present: PERRL - Neck Neck exam general surgery: Present: supple, trachea midline. Absent: lymphadenopathy - Respiratory Respiratory exam: Present: CTAB. Absent: accessory muscle use, rales, rhonchi, wheezes - Cardiovascular Cardiovascular exam: Present: RRR, +S1, +S2. Absent: diastolic murmur, gallop, rubs, systolic murmur - GI/Abdominal GI/Abdominal exam: Present: normal bowel sounds, soft, no peritoneal signs. Absent: distended, tenderness - Extremities Exam Extremities exam: Present: warm, radial pulses palpable and symetrical. Absent : calf tenderness, cyanotic, pedal edema - Neurological Exam Neurological exam: Present: CN II-XII intact, oriented X3, no focal deficits. Absent: pronater drift, facial droop, speech deficit - Skin Skin exam: Present: dry, intact Internal Medicine: Result - Labs CBC & Chem 7: 11/25/16 05:10 11/25/16 05:10 - ABG Interpretation ABG results: PT/INR, D-dimer PT 14.7 Seconds (9.4-12.1) H 11/26/16 04:29 - VTE Reasons for not Prescribing Prophylaxis: Not indicated-Anticoagulated or INR therapeutic Consult Discharge Plan - Plan Referrals: Cortney Bullard MD [Primary Care Provider] - Prescriptions: Enoxaparin [Lovenox] 140 mg SQ DAILY #10 syr
[2016-11-26] MEDS ORDERED: *HR* Warfarin 7.5 MG TABLET PO ONE (18:00)
[2016-11-26] MEDS: traZODone 50 MG TABLET PO SCH (22:32)
[2016-11-27 04:15] LABS: INR 1.6
[2016-11-27] MEDS: Heparin 25,000 UNIT/500 ML D5W 25,000 UNIT/500 ML MLS IVC SCH (04:20)
--- NOTE | 2016-11-27 07:35 | Internal Med Progress Note ---
Date of Encounter: 11/27/16 Time of Encounter: 07:33 - Assessment and plan (1) Mural thrombus of left ventricle without IN Current Visit: Yes Status: Acute Assessment and plan: On IV heparin and coumadin. Is willing to stay in hospital to get therapeutic on coumadin. 11/26/2016. Patient's INR is 1.4. Will continue the same medication. 11/27/2016. Agents INR is 1.6. We will continue same medication. Target INR: 2-3 Explained patient all above. He verbalized understanding. Patient's family member at bedside. (2) Nonischemic cardiomyopathy Current Visit: No Status: Acute Assessment and plan: Supportive care and medical management. (3) Essential hypertension Current Visit: Yes Status: Chronic Assessment and plan: Continue meds. (4) ETOH abuse Current Visit: No Status: Chronic Assessment and plan: Currently on CIWA. Added routine Librium as well today. (5) DVT prophylaxis Current Visit: No Status: Acute Assessment and plan: Heparin drip Medical decision making: This patient has a [id number] risk of worsening in spite of being on appropriate medication due to the underlying cardiac issues - Subjective Interval history: Patient seen and examined. Chart reviewed. Patient is comfortably lying in the bed. Patient denies chest pain, shortness of breath, nausea, vomiting, diarrhea and abdominal pain. 11/27/2016 Patient seen and examined. Chart reviewed. Patient is comfortably sitting up in a bed. Patient denies chest pain, shortness of breath, abdominal pain, nausea, vomiting , dizziness or diarrhea. - Constitutional Vitals: Temp Pulse Resp BP Pulse Ox 97.5 F L 89 17 98/68 99 11/27/16 07:20 11/27/16 07:20 11/27/16 07:20 11/27/16 07:20 11/27/16 07:20 General appearance: Present: A&O X 3, answers questions appropriately - Head Head exam: Present: atraumatic, normocephalic - Eye Eye exam: Present: PERRL, conjuntiva pink, sclera anicteric Pupils: Present: PERRL - Neck Neck exam general surgery: Present: supple, trachea midline. Absent: lymphadenopathy - Respiratory Respiratory exam: Present: CTAB. Absent: accessory muscle use, rales, rhonchi, wheezes - Cardiovascular Cardiovascular exam: Present: RRR, +S1, +S2. Absent: diastolic murmur, gallop, rubs, systolic murmur - GI/Abdominal GI/Abdominal exam: Present: normal bowel sounds, soft, no peritoneal signs. Absent: distended, tenderness - Extremities Exam Extremities exam: Present: warm, radial pulses palpable and symetrical. Absent : calf tenderness, cyanotic, pedal edema - Neurological Exam Neurological exam: Present: CN II-XII intact, oriented X3, no focal deficits. Absent: pronater drift, facial droop, speech deficit - Skin Skin exam: Present: dry, intact Internal Medicine: Result - Labs CBC & Chem 7: 11/25/16 05:10 11/25/16 05:10 - ABG Interpretation ABG results: PT/INR, D-dimer PT 17.0 Seconds (9.4-12.1) H 11/27/16 03:48 - VTE Reasons for not Prescribing Prophylaxis: Not indicated-Anticoagulated or INR therapeutic Consult Discharge Plan - Plan Referrals: Cortney Bullard MD [Primary Care Provider] - Prescriptions: Enoxaparin [Lovenox] 140 mg SQ DAILY #10 syr
[2016-11-27] MEDS: Folic Acid 1 MG TABLET PO SCH (08:28)
[2016-11-27] MEDS: Furosemide 40 MG TABLET PO SCH (08:28)
[2016-11-27] MEDS: Lisinopril 20 MG TABLET PO SCH ×2 (08:28→20:11)
[2016-11-27] MEDS: Metoprolol XL (24 HR) Succ 50 MG TAB.ER.24H PO SCH (08:28)
[2016-11-27] MEDS: Aspirin 81 MG TAB.CHEW PO SCH (08:29)
[2016-11-27] MEDS: Pregabalin 50 MG CAPSULE PO SCH ×3 (08:29→20:11)
[2016-11-27] MEDS: Nicotine 21 MG PATCH.TD24 TD SCH (08:29)
[2016-11-27] MEDS: Thiamine (B-1) 100 MG TABLET PO SCH (08:29)
[2016-11-27] MEDS: *HR* OxyCODONE/APAP 5/325 TABLET PO PRN ×4 (08:36→22:49)
[2016-11-27] MEDS: *HR* LORazepam 0.5 MG TABLET PO PRN (11:15)
[2016-11-27] MEDS: *HR* LORazepam 2 MG/ML VIAL IVP PRN (15:37)
[2016-11-27] MEDS ORDERED: *HR* Warfarin 7.5 MG TABLET PO ONE (18:00)
[2016-11-27] MEDS: traZODone 50 MG TABLET PO SCH (20:11)
[2016-11-28] MEDS: Heparin 25,000 UNIT/500 ML D5W 25,000 UNIT/500 ML MLS IVC SCH (01:12)
[2016-11-28] MEDS: *HR* LORazepam 2 MG/ML VIAL IVP PRN (01:17)
[2016-11-28 05:02] LABS: INR 2.2; Prothrombin Time 24.5 Seconds (9.4-12.1)
[2016-11-28 05:03] LABS: Hematocrit 40.1 % (37.5-50.1); Hemoglobin 13.9 g/dL (12.9-16.9)
[2016-11-28 06:43] VITALS: BP 82/54
--- NOTE | 2016-11-28 07:25 | Discharge Summary ---
Date of Encounter: 11/28/16 Time of Encounter: 07:19 - Discharge Diagnosis (1) Mural thrombus of left ventricle without SD Priority: Primary Status: Acute (2) Nonischemic cardiomyopathy Priority: Secondary Status: Acute (3) Essential hypertension Priority: Secondary Status: Chronic (4) ETOH abuse Priority: Secondary Status: Chronic (5) DVT prophylaxis Priority: Secondary Status: Acute - Discharge Medications Prescriptions: Warfarin [Coumadin] 7.5 mg PO 1800 #30 tablet Home Medications: Trazodone HCl [TraZODone] 100 mg PO HS 09/04/15 [History] OxyCODONE/APAP 5/325 [Percocet 5/325 MG] 1 each PO Q6H PRN 12/06/15 [History] Aspirin 81 mg PO DAILY #30 tab.chew 12/08/15 [Rx] Furosemide [Lasix] 40 mg PO DAILY #30 tablet 12/08/15 [Rx] Potassium Chloride 10 meq PO DAILY #30 tab.er.prt 12/08/15 [Rx] Diclofenac Sodium 1 appl TP QID PRN 11/22/16 [History] Metoprolol XL (24 HR) Succ [Toprol Xl] 75 mg PO DAILY 11/22/16 [History] Pregabalin [Lyrica] 50 mg PO TID 11/22/16 [History] Lisinopril [Zestril] 20 mg PO BID 11/23/16 [History] Warfarin [Coumadin] 7.5 mg PO 1800 #30 tablet 11/28/16 [Rx] Allergies/Adverse Reactions: Allergies No Known Allergies Allergy (Verified 12/06/15 12:27) Date of admission: 11/22/16 23:08 Primary care physician: Cortney Bullard Consults: 11/23/16 04:39 Consult to Cardiology [CONS] Routine Comment: Consulting Provider: Cardiology Eliz Reason for Consult: LV thrombus Call Completed: No 11/25/16 11:14 Consult to Motion Picture Commentator [CONS] Routine Reason for SW Consult: check rivero for lovenox. Discharging clinician: Brad Stringer - Patient Status Disposition: Home, Self-Care Condition: Good Functional capacity at discharge: independent ambulation Overall status at discharge: patient is progressing back to baseline - Discharge Instructions Follow Up With: Cortney Bullard MD [Primary Care Provider] - Roly Batres DO [Partnered Physician] - - Diet and Activity Activity: increase activity as tolerated Diet: low fat, low cholesterol, low salt diet Interval History: Mr. Cabrera is a 31 year old male with past medical history systolic CHF (LVEF of 35%), non-ischemic cardiomyopathy, hypertension, h/o ETOH and tobacco abuse. Pt was in Dr. Harper office for echocardiogram, which reported LVEF of 35% and echodensity in the left ventricular apex suspicious for laminated LV thrombus. Patient was advised to come to the emergency department for anticoagulation. Conditioning Coach advised / pt preference, heparin infusion and warfarin. Patient denies any chest pain, any worsening of shortness of breath, palpitations, cough, expectoration, fever, chills, abdominal pain, nausea, vomiting, fevers, diarrhea, dysuria. Patient with started on heparin infusion in the emergency department. He is admitted to the hospitalist service for further management. Hospital course: Patient was hospitalized. Cardiology evaluated patient. Patient was started on heparin. Coumadin was started concomitantly as patient has a left ventricular mural thrombus. Today patient's INR is 2.2. Patient can go home today. I have discussed at length with the patient regarding diet when he is taking Coumadin particularly. The risk, benefit, I want days and decide on days of Coumadin therapy explained to the patient at length. Risk of bleeding discussed. Plan: Patient can go home today. Follow-up with anticoagulation clinic. Paperwork completed and faxed. Follow up with cardiology. Follow-up with PCP. At the time of discharge patient does not have any questions, concerns, update or recommendation. - Time Spent with Patient Total time spent providing and/or coordinating discharge services: - Constitutional Vitals: Temp Pulse Resp BP Pulse Ox 97.8 F 94 16 82/54 97 11/28/16 06:41 11/28/16 06:41 11/28/16 06:41 11/28/16 06:41 11/28/16 06:41 General appearance: Present: A&O X 3, answers questions appropriately - Head Head exam: Present: atraumatic, normocephalic - Eye Eye exam: Present: PERRL, conjuntiva pink, sclera anicteric Pupils: Present: PERRL - Neck Neck exam general surgery: Present: supple, trachea midline. Absent: lymphadenopathy - Respiratory Respiratory exam: Present: CTAB. Absent: accessory muscle use, rales, rhonchi, wheezes - Cardiovascular Cardiovascular exam: Present: RRR, +S1, +S2. Absent: diastolic murmur, gallop, rubs, systolic murmur - GI/Abdominal GI/Abdominal exam: Present: normal bowel sounds, soft, no peritoneal signs. Absent: distended, tenderness - Extremities Exam Extremities exam: Present: warm, radial pulses palpable and symetrical. Absent : calf tenderness, cyanotic, pedal edema - Neurological Exam Neurological exam: Present: CN II-XII intact, oriented X3, no focal deficits. Absent: pronater drift, facial droop, speech deficit - Skin Skin exam: Present: dry, intact - VTE Reasons for not Prescribing Prophylaxis: Not indicated-Anticoagulated or INR therapeutic
== END 2016-11-28 10:05 | disposition home or self-care (01) | DRG 303 ==
LOC: EMEROO 21:21 → SUATTDRO 23:08 → 2NENU 23:08
PROVIDERS: ADMIT Internal Medicine; ATTEND Internal Medicine